=== PATIENT | female | born 1970 | race African-American/Black ===

== ENCOUNTER → 2019-03-27 06:09 | Outpatient (CLI) | payer BC ==
[~2019-03-27 06:09] MED LIST: CARAFATE1 G PO; OMEPRAZOLE40 MG PO; PRINIVIL10 MG PO; ZOFRAN ODT4 MG/UDTAB PO
== END | disposition home or self-care (01) ==
LOC: D.US 06:09
PROVIDERS: ATTEND Emergency Medicine
DX: R10.9 Unspecified abdominal pain (principal)

== ENCOUNTER 2019-04-03 19:09 | Emergency (ER) | payer BC ==
[~2019-04-03] VITALS: Ht 162.6 cm; Wt 81.8 kg
[2019-04-03 19:27] VITALS: Ht 162.6 cm; Wt 81.8 kg
[2019-04-03] MEDS ORDERED: PRINIVIL10 MG PO (19:33)
[2019-04-03] MEDS ORDERED: ZOFRAN ODT4 MG/UDTAB PO (19:33)
[2019-04-03 19:54] LABS: HEMATOCRIT 38.6 % (36.0-48.0); HEMOGLOBIN 13.3 g/dL (12-16); MCHC 34.5 g/dL (31.0-37.0); MEAN PLATELET VOLUME 11.3 fL (7.4-10.4); PLATELET COUNT 177 10x3/uL (130-400); RBC 4.29 10x6/uL (4.00-5.40); RDW 14.4 % (11.5-14.5); WBC 7.1 10x3/uL (4.8-10.8)
[2019-04-03 20:12] LABS: ALBUMIN 3.2 g/dL (3.4-5.0); ALKALINE PHOSPHATASE 57 U/L (46-116); ALT (SGPT) 10 U/L (10-68); BILIRUBIN - TOTAL 0.28 mg/dL (0.2-1.3); CALCIUM 8.3 mg/dL (8.5-10.1); CARBON DIOXIDE 27.5 mmol/L (21.0-32.0); CHLORIDE - SERUM 103 mmol/L (98-107); CREATININE - SERUM 0.9 mg/dL (0.6-1.3); POTASSIUM - SERUM 3.5 mmol/L (3.5-5.1); PROTEIN - SERUM 7.3 g/dL (6.4-8.2); SODIUM 139 mmol/L (136-145); UREA NITROGEN 6 mg/dL (7-18); eGFR NON AFRICAN AMERICAN 71 mL/min (90-120)
[2019-04-03 20:15] LABS: AMYLASE - SERUM 108 U/L (25-115); LIPASE 132 U/L (73-393)
[2019-04-03 20:18] LABS: CALC OSMOLALITY 273 mosm/kg (275-300); GLUCOSE 69 mg/dL (74-106); TROPONIN-I < 0.017 ng/mL (0.000-0.060)
[2019-04-03 21:05] LABS: APPEARANCE CLEAR (CLEAR); BILIRUBIN NEGATIVE (NEGATIVE); COLOR YELLOW (YELLOW); GLUCOSE NEGATIVE (NEGATIVE); KETONE NEGATIVE (NEGATIVE); NITRITE NEGATIVE (NEGATIVE); PROTEIN NEGATIVE (NEGATIVE); UROBILINOGEN NORMAL (NORMAL)
[2019-04-03 21:10] LABS: RED CELLS - URINE 0-5 /hpf (0-5); WHITE CELLS - URINE OCC /hpf (0-5)
[2019-04-03 21:12] LABS: BACTERIA FEW /hpf (NONE SEEN)
[2019-04-03 21:27] LABS: EOSINOPHILS 5 % (0-7); LYMPHOCYTES 53 % (15-50); MONOCYTES 2 % (2-11); NEUTROPHILS 39 % (40-80)
[2019-04-03 21:28] LABS: PLATELET ESTIMATE NORMAL
[2019-04-03] MEDS ORDERED: CARAFATE1 G PO (23:16)
[2019-04-03] MEDS ORDERED: OMEPRAZOLE40 MG PO (23:16)
[2019-04-03 23:57] VITALS: BP 169/100
== END 2019-04-03 23:57 | disposition home or self-care (01) ==
LOC: D.ER 19:09
PROVIDERS: Family Medicine
DX: K29.70 Gastritis, unspecified, without bleeding (principal); R10.9 Unspecified abdominal pain; R11.0 Nausea

== ENCOUNTER 2019-04-09 16:21 | Emergency (ER) | payer BC ==
[~2019-04-09] VITALS: Ht 162.6 cm; Wt 84.5 kg
[2019-04-09 17:45] VITALS: Ht 162.6 cm; Wt 84.5 kg
[2019-04-09 18:33] LABS: HEMATOCRIT 42.8 % (36.0-48.0); HEMOGLOBIN 14.6 g/dL (12-16); MCH 30.7 pg (26.0-34.0); MCHC 34.1 g/dL (31.0-37.0); MCV 90.1 fL (80.0-100.0); MEAN PLATELET VOLUME 11.5 fL (7.4-10.4); PLATELET COUNT 174 10x3/uL (130-400); RBC 4.75 10x6/uL (4.00-5.40); RDW 14.5 % (11.5-14.5); WBC 6.1 10x3/uL (4.8-10.8)
[2019-04-09 18:53] LABS: ALBUMIN 3.4 g/dL (3.4-5.0); ANION GAP 10.8 mmol/L (8-16); BILIRUBIN - TOTAL 0.31 mg/dL (0.2-1.3); CALCIUM 9.1 mg/dL (8.5-10.1); CARBON DIOXIDE 27.5 mmol/L (21.0-32.0); CREATININE - SERUM 1.2 mg/dL (0.6-1.3); POTASSIUM - SERUM 3.3 mmol/L (3.5-5.1); PROTEIN - SERUM 7.9 g/dL (6.4-8.2)
[2019-04-09 19:08] LABS: EOSINOPHILS 3 % (0-7); LYMPHOCYTES 53 % (15-50); NEUTROPHILS 44 % (40-80); PLATELET ESTIMATE NORMAL
[2019-04-09 19:27] LABS: APPEARANCE CLEAR (CLEAR); BILIRUBIN NEGATIVE (NEGATIVE); COLOR YELLOW (YELLOW); GLUCOSE NEGATIVE (NEGATIVE); KETONE NEGATIVE (NEGATIVE); NITRITE NEGATIVE (NEGATIVE); PROTEIN NEGATIVE (NEGATIVE); SPECIFIC GRAVITY 1.025 (1.005-1.020); UROBILINOGEN NORMAL (NORMAL)
[2019-04-09] MEDS ORDERED: ZOFRAN8 MG PO (19:52)
[2019-04-09] MEDS ORDERED: TORADOL10 MG PO (19:52)
[2019-04-09 20:13] VITALS: BP 157/93
== END 2019-04-09 20:14 | disposition home or self-care (01) ==
LOC: D.ER 16:21
PROVIDERS: Family Medicine
DX: R10.11 Right upper quadrant pain (principal); R50.9 Fever, unspecified; I10 Essential (primary) hypertension

== ENCOUNTER 2019-04-27 05:00 | Day surgery (SDC) | payer BC ==
[2019-04-26 09:42] LABS: ANION GAP 8.4 mmol/L (8-16); CALCIUM 8.9 mg/dL (8.5-10.1); CARBON DIOXIDE 31.1 mmol/L (21.0-32.0); CREATININE - SERUM 0.9 mg/dL (0.6-1.3); POTASSIUM - SERUM 3.5 mmol/L (3.5-5.1)
[2019-04-26 10:07] LABS: BASOPHILS 0.3 % (0-2); EOSINOPHILS 5.1 % (0-7); HEMATOCRIT 40.1 % (36.0-48.0); HEMOGLOBIN 13.7 g/dL (12-16); IMMATURE GRANULOCYTES 0.1 % (0-5); LYMPHOCYTES 47.3 % (15-50); MCH 30.6 pg (26.0-34.0); MCHC 34.2 g/dL (31.0-37.0); MCV 89.5 fL (80.0-100.0); MEAN PLATELET VOLUME 12.2 fL (7.4-10.4); MONOCYTES 6.5 % (2-11); NEUTROPHILS 40.7 % (40-80); PLATELET COUNT 203 10x3/uL (130-400); RBC 4.48 10x6/uL (4.00-5.40); RDW 14.2 % (11.5-14.5)
[~2019-04-27] VITALS: Ht 162.6 cm; Wt 85.3 kg
[~2019-04-27 05:00] MED LIST changes: +TORADOL10 MG PO; +ZOFRAN8 MG PO
[2019-04-27 05:32] VITALS: BP 143/91; Ht 162.6 cm; Wt 85.3 kg
[2019-04-27] MEDS ORDERED: HYDROCODON-ACE1 EA10 PO (08:18)
--- NOTE | 2019-04-27 09:39 | NUR ---
0915 PT OXYGEN SATURATION 100% ON 4LMIN BNC. TURNED BNC TO 2L/MIN. HOLDING O2 SAT AT 99-100%
--- NOTE | 2019-04-27 13:26 | NUR ---
1022 PT C/O ABDOMINAL PAIN. VSS. NORCO GIVEN FOR PAIN
--- NOTE | 2019-04-27 13:28 | NUR ---
1100 PT UP TO BR WITH ASSISTANCE. PAIN LEVEL HAS DECREASED SLIGHTLY. STATES PAIN IS A 7 OUT OF 10. PREVIOUS ASSESSMENT WAS 10 OUT OF 10. PT ABLE TO VOID WITHOUT DIFFICULTY.
--- NOTE | 2019-04-27 13:30 | NUR ---
1108 IV DC'D. CATHETER TIP INTACT. NO BLEEDING AT SITE. BANDAID APPLIED.
--- NOTE | 2019-05-15 10:07 | OP ---
PATIENT NAME: ELIS CROWLEY MEDICAL RECORD: [id number] :74 LOCATION:D.FORMERLY [facility] ADMISSION DATE: SURGEON: JEOVANY JENNINGS MD DATE OF OPERATION: 04/27/2019 PREOPERATIVE DIAGNOSES: 1. Gallbladder polyp. 2. Gastritis. 3. Hypertension. 4. Tobacco dependence syndrome. POSTOPERATIVE DIAGNOSES: 1. Gallbladder polyp. 2. Gastritis. 3. Hypertension. 4. Tobacco dependence syndrome. PROCEDURE: 1. Laparoscopic cholecystectomy. 2. EGD with biopsy. SURGEON: Jeovany Jennings MD GOLD CHARMER: Darshan Arboleda REPORT OF PROCEDURE: The patient's abdomen was prepped and draped in sterile fashion. A cutdown was made on the superior aspect of the umbilicus, 0 Vicryls were placed in the fascia bilaterally and the fascia was incised with 15-blade. I then bluntly entered the peritoneal cavity and placed a 12-mm Barb port. Under direct visualization, a 5 mm trocar was placed in the epigastrium and 2 more 5-mm trocars were placed in the right subcostal region. The gallbladder was grasped and elevated. The cystic artery and cystic duct were dissected free and these were clipped proximally and distally and ligated in standard fashion. The gallbladder was then taken off the liver bed using electrocautery and placed in the right upper quadrant. 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 These adhesions were all taken down using electrocautery. At this point, we irrigated out the right upper quadrant and assured there was no sign of any bleeding. The ports and insufflation were then removed and the gallbladder was taken out through the umbilicus. The umbilical fascia was closed with interrupted 0 Vicryls times 3 and the wounds were closed with running subcutaneous 5-0 Monocryl. A 10 mL of 0.25% Marcaine with epinephrine were infused into the surrounding tissues. The wounds were dressed appropriately. We then performed our EGD. An Olympus endoscope was advanced through the patient's mouth and esophagus. The scope easily passed through the pylorus into the second portion of the duodenum. There was no sign of any masses, lesions, ulcerations or inflammatory changes. As we pulled back, we could see the pylorus and there was some old food content present within the distal aspect of the stomach. There were no ulcerations, lesions or stenoses noted. A biopsy was taken of the antrum of the stomach and sent off for permanent specimen. As we did a retroflex view we did not see any evidence or any other masses, lesions or ulcerations throughout the stomach and there was no sign of a hiatal hernia. The GE junction appeared normal and rested at 38 cm from the teeth. A biopsy was taken on the distal third of the esophagus near the GE junction. There was no sign of any inflammatory changes or ulcerations present on the distal third OPERATIVE REPORT [id number] ELIS CROWLEY of the esophagus. The endoscope was pulled back slowly and we did not see any masses, lesions or strictures of the esophagus. At this point, the insufflation and the scope were removed. COMPLICATIONS: None. CONDITION: Stable. ANESTHESIA: General endotracheal and local. BLOOD LOSS: Minimal. TRANSINT:[id number] Voice Confirmation ID: [id number] DOCUMENT ID: [id number] cc: tone Lopez CHRISTIAN MD at 1007 CC: [id number] DICTATION DATE: 04/27/19824 SET UP MECHANIC COATING MACHINES: 04/27/19 0842 [facility] 04/27/19 [facility] [address] [place] [address]
== END 2019-04-27 11:35 | disposition home or self-care (01) ==
LOC: D.OPS 05:00 → D.PAN 07:15 → D.OPS 11:35
PROVIDERS: ATTEND Surgery
DX: K82.4 Cholesterolosis of gallbladder (principal); K29.70 Gastritis, unspecified, without bleeding; I10 Essential (primary) hypertension; F17.200 Nicotine dependence, unspecified, uncomplicated

== ENCOUNTER 2019-04-27 20:57 | Emergency (ER) | payer BC ==
[~2019-04-27] VITALS: Ht 162.6 cm; Wt 84.5 kg
[~2019-04-27 20:57] MED LIST changes: +HYDROCODON-ACE1 EA10 PO
[2019-04-27 21:06] VITALS: Ht 162.6 cm; Wt 84.5 kg
[2019-04-27 21:26] LABS: BASOPHILS 0.2 % (0-2); HEMATOCRIT 40.9 % (36.0-48.0); HEMOGLOBIN 13.8 g/dL (12-16); LYMPHOCYTES 40.8 % (15-50); MCH 30.5 pg (26.0-34.0); MCHC 33.7 g/dL (31.0-37.0); MCV 90.5 fL (80.0-100.0); MEAN PLATELET VOLUME 11.4 fL (7.4-10.4); MONOCYTES 5.7 % (2-11); NEUTROPHILS 51.3 % (40-80); PLATELET COUNT 195 10x3/uL (130-400); RBC 4.52 10x6/uL (4.00-5.40); RDW 14.4 % (11.5-14.5); WBC 6.4 10x3/uL (4.8-10.8)
[2019-04-27 21:48] LABS: ALBUMIN 3.5 g/dL (3.4-5.0); ALKALINE PHOSPHATASE 58 U/L (46-116); ALT (SGPT) 31 U/L (10-68); BILIRUBIN - TOTAL 0.47 mg/dL (0.2-1.3); CALC OSMOLALITY 276 mosm/kg (275-300); CALCIUM 8.9 mg/dL (8.5-10.1); CARBON DIOXIDE 27.5 mmol/L (21.0-32.0); CHLORIDE - SERUM 104 mmol/L (98-107); GLUCOSE 104 mg/dL (74-106); POTASSIUM - SERUM 3.8 mmol/L (3.5-5.1); PROTEIN - SERUM 7.5 g/dL (6.4-8.2); SODIUM 140 mmol/L (136-145); UREA NITROGEN 7 mg/dL (7-18); eGFR NON AFRICAN AMERICAN 63 mL/min (90-120)
[2019-04-27 21:52] LABS: AMYLASE - SERUM 77 U/L (25-115); LIPASE 75 U/L (73-393); TROPONIN-I < 0.017 ng/mL (0.000-0.060)
[2019-04-27 23:48] LABS: APPEARANCE CLEAR (CLEAR); BILIRUBIN NEGATIVE (NEGATIVE); COLOR YELLOW (YELLOW); GLUCOSE NEGATIVE (NEGATIVE); KETONE NEGATIVE (NEGATIVE); NITRITE NEGATIVE (NEGATIVE); PROTEIN NEGATIVE (NEGATIVE); RED CELLS - URINE 0-5 /hpf (0-5); UROBILINOGEN NORMAL (NORMAL); WHITE CELLS - URINE 0-5 /hpf (0-5)
[2019-04-28 02:00] VITALS: BP 141/83
== END 2019-04-28 01:57 | disposition home or self-care (01) ==
LOC: D.ER 20:57
PROVIDERS: Family Medicine
DX: Z90.49 Acquired absence of other specified parts of digestive tract (principal); R11.2 Nausea with vomiting, unspecified

== ENCOUNTER 2019-05-23 17:14 | Observation (INO) | payer BC ==
[~2019-05-23] VITALS: Ht 162.6 cm; Wt 83.5 kg
--- NOTE | ~2019-05-23 | HEMODYNAMI ---
PATIENT:ELIS CROWLEY MEDICAL RECORD: [id number] : 74 LOCATION:[facility] [address] [place] [facility] [id number] ADMISSION DATE: 05/23/19 Generatedon:05/24/201915:24 Patient name: ELIS CROWLEY Patient #: [id number] SSN: [id number] : 1970 Date of study: 05/24/2019 Page: Of Hemodynamic Procedure Report Patient Data Patient Demographics Procedure consent was obtained First Name: ELIS Gender: Female Last Name: KEO : 1970 Middle Initial: MALACHI Age: 48 year(s) Patient #: [id number] Race: Black SSN: [id number] Additional ID: [id number] Contact details [address]: [address] [place] [address] [place] State: [place] City: [place] Zip code: [address] Past Medical History Allergies: No known allergies Admission Admission Data Admission Date: 05/23/2019 Admission Time: 21:27 Admit Source: Other Room #: D.2112 Height (in.): 64 BSA: 1.89 (m2) Height (cm.): 162.56 BMI: 31.79 (kg/m2) Weight (lbs.): 185.19 Weight (kg.): 84 Lab Results Lab Result Date: 05/24/2019 Lab Result Time: 0:00 Biochemistry Name Units Result Min Max BUN mg/dl 9 --(*---)-- 7 18 Creatinine mg/dl 0.9 --(-*--)-- 0.6 1.3 eGFR ml/min 85.57937 -*(----)-- 90 120 AM CBC Name Units Result Min Max Hematocrit % 37.4 *-(----)-- 42 54 Hemoglobin g/dl 12.4 *-(----)-- 13.5 17.5 Procedure Procedure Types Cath Procedure Diagnostic Procedure LHC LHC w/Coronaries Sedation Charges Moderate Sedation up to 15 minutes Procedure Description Procedure Date Procedure Date: 05/24/2019 Procedure Start Time: 15:09 Procedure End Time: 15:21 Procedure Staff Name Function Amparo Perez RT Monitor Stacy Branham RN Nurse Levi Blanchard MD Performing Physician Abdoul Hazel RN Nurse Christel Ortiz RT Scrub Procedure Data Cath Procedure Fluoroscopy Diagnostic fluoroscopy Total fluoroscopy Time: 1.4 time: 1.4 min min Diagnostic fluoroscopy Total fluoroscopy dose: 293 dose: 293 mGy mGy Contrast Material Contrast Material Type Amount (ml) Isovue 300 51 Entry Location Entry Primary Successful Side Size Upsize Upsize Entry Closure Greer ccessful Closure Location (Fr) 1 (Fr) 2 (Fr) Remarks Device Remarks Radial Right 6 Fr Mechanical artery Short Compression Estimated blood loss: 5 ml Diagnostic catheters Device Type Used For End Catheter Placement DIAGNOSTIC Gouverneur 110cm 5 Multi-vessel Fr catheter ([id number]) Angiography Procedure Complications No complications Procedure Medications Medication Administration Route Dosage 0.9% NaCl I.V. 100 ml/hr Oxygen etCO2 Nasal cannula 2 l/min Heparin Flush Bag added to field 2 bags (1000units/500ml NS) Lidocaine 2% added to field 20 Radial Cocktail added to field 1 syringe (Verapamil 2mg/Nitro 400mcg/Heparin 1500units) Benadryl I.V. 50 mg Versed I.V. 1 mg Fentanyl I.V. 50 mcg Versed I.V. 1 mg Radial Cocktail I.A. 1 syringe (Verapamil 2mg/Nitro 400mcg/Heparin 1500units) Hemodynamics Rest HGB: 12.4 (g/dl) O2 Consumption: Estimated: 174.39 (ml/min) O2 Consumption index ed: Estimated:92.27 (ml/min/m) Heart Rate: 51 (bpm) Pressure Samples Time Site Value (mmHg) Purpose Heart Use Rate(bpm) 15:12 LV 115/6,9 Snapshot 71 Gradients Valve Time Site Site Mean SEP/DFP Peak To Heart Use 1 2 (mmHg) (sec/min) Peak Rate (mmHg) (bpm) Aortic 15:12 LV AO 72 Snapshots Pre Cath Intra NCS Post Cath Vital Signs Time Heart Resp SPO2 etCO2 NIBP (mmHg) Rhythm Pain Sedation Rate (ipm) (%) (mmHg) Status Level (bpm) 15:03:29 54 16 100 37.3 184/83(154) NSR 0 (11) 10(A) , No pain 15:08:00 51 15 99 39.5 167/85(130) NSR 0 (11) 10(A) , No pain 15:12:14 71 18 100 37.3 127/78(96) NSR 0 (11) 9(A) , No pain 15:17:13 58 17 95 38.8 Measuring NSR 0 (11) 9(A) , No pain 15:17:17 57 16 95 38.8 143/86(103) NSR 0 (11) 9(A) , No pain Medications Time Medication Route Dose Verified Delivered Reason Notes Effectiveness by by 15:05:55 0.9% NaCl I.V. 100 Abdoul Abdoul Per ml/hr Yasemin Hazel physician RN RN 15:06:05 Oxygen etCO2 2 l/min Abdoul Abdoul for low 02 Nasal Lorigan Lorigan sats cannula RN RN 15:06:18 Heparin Flush added 2 bags Abdoul Abdoul used for Bag to Lorbernard Hazel procedure (1000units/500ml RN RN NS) 15:06:30 Lidocaine 2% added 20ml Abdoul Abdoul for local to vial Lorigan Lorigan anesthetic field RN RN 15:06:44 Radial Cocktail added 1 Abdoul Abdoul used for (Verapamil to syringe Lorigan Lorigan procedure 2mg/Nitro field NORMAN RN 400mcg/Hepari 15:06:55 Benadryl I.V. 50 mg Abdoul Abdoul Per Yasemin Hazel physician RN RN 15:07:22 Versed I.V. 1 mg Abdoul Abdoul for sedation Yasemin Hazel RN RN 15:07:30 Fentanyl I.V. 50 mcg Abdoul Abdoul for sedation Yasemin Hazel RN RN 15:09:58 Versed I.V. 1 mg Abdoul Abdoul for sedation Yasemin Hazel RN RN 15:10:45 Radial Cocktail I.A. 1 Abdoul Levi for (Verapamil syringe Lorigan Kerkhoven vasodilation 2mg/Nitro EMERSON ESTRADA 400mcg/Hepari Procedure Log Time Note 14:07:34 Informed consent obtained and on chart 14:08:13 Procedure Status Urgent Heart Cath (IP). 14:08:14 Time tracking: Regular hours (M-F 7:00 - 5:00) 14:08:18 Plan of Care:Hemodynamics will remain stable., Cardiac rhythm will remain stable., Comfort level will be maintained., Respiratory function will remain adequate., Patient/ family verbilizes understanding of procedure., Procedure tolerated without complication., Recovers from procedure without complications.. 14:08:29 Patient Weight : 185.19 lbs 14:08:32 Patient Height : 64 inches 14:08:38 Admit Source: Other 14:08:51 Patient allergic to No known allergies 14::15 Lab Result : Hemoglobin 12.4 g/dl 14:: Lab Result : Hematocrit 37.4 % 14::15 Lab Result : eGFR AM 85.09772 ml/min 14::15 Lab Result : BUN 9 mg/dl 14::15 Lab Result : Creatinine 0.9 mg/dl 14:32:04 Stacy Branham RN sent for patient. Start room use. 14:51:48 Patient received from Med II to CCL 1 Alert and oriented. Tansferred to table in Supine position. 14:51:49 ECG and BP/O2 sat monitors applied to patient. 14:51:49 Correct patient and procedure confirmed by team. 14:51:49 Warm blankets applied, and jeffrey hugger turned on for patient comfort. 15:01:18 Vital chart was started 15:01:20 Baseline sample Acquired. 15:01:22 Rhythm: sinus bradycardia 15:01:23 Full Disclosure recording started 15:01:24 Pre-op teaching completed and patient verbalized understanding. 15:01:24 Pre-procedure instructions explained to patient. 15:01:27 Family in patients room. 15:01:29 Patient NPO since Midnight. 15:01:41 PATIENT PRELOADED ON PLAVIX 15:01:47 Patient diabetic? No. 15:01:48 Patient not . Patient has had tubal. 15:01:51 Previous problem with sedation/anesthesia? No ? 15:01:53 Snore? Yes 15:01:55 Sleep apnea? No 15:01:56 Deviated septum? No 15:01:57 Opens mouth fully? Yes 15:02:03 Sticks out tongue? Yes 15:02:06 Dentures? No ? 15:02:07 Airway obstruction? No ? 15:02:10 Modified Brian's test Ulnar < 7 seconds 15:02:13 Pre procedure: right dorsailis pedis pulse 1+ Palpable, but thready & weak; easily obliterated 15:02:19 Patient pain scale 2/10 ?. 15:02:25 IV patent on arrival in left forearm with 0.9% NaCl at [facility]. 15:02:30 Lab results completed and on chart. 15:02:33 Right Radial & Right Groin area was prepped with chlora-prep and draped in sterile fashion 15:02:34 Alarms reviewed by R. N. 15:02:35 Sharps counted by scrub and verified by R.N. 15:02:42 Use device set Radial Dx or PCI 15:02:49 ACIST Syringe (45981) opened to sterile field. 15:02:51 ACIST Hand Control (25125) opened to sterile field. 15:02:52 Bag Decanter (2002S) opened to sterile field. 15:02:53 ACIST Manifold (44329) opened to sterile field. 15:02:54 Tegaderm 4 x 4 (1626W) opened to sterile field. 15:02:57 MBrace Wrist Support ([id number]) opened to sterile field. 15:02:57 Medline Cath Pack ([id number]) opened to sterile field. 15:03:00 EMERALD Guide Wire (924-548) opened to sterile field. 15:03:01 SHEATH 6FR RAIN (1650638) opened to sterile field. 15:05:55 0.9% NaCl 100 ml/hr I.V. was administered by Abdoul Hazel RN; Per physician; Verbal order read back and verified. 15:06:05 Oxygen 2 l/min etCO2 Nasal cannula was administered by Abdoul Hazel RN; for low 02 sats; Verbal order read back and verified. 15:06:18 Heparin Flush Bag (1000units/500ml NS) 2 bags added to field was administered by Abdoul Hazel RN; used for procedure; Verbal order read back and verified. 15:06:25 ZEPHYR REGULAR TR BAND (522643) opened to sterile field. 15:06:30 Lidocaine 2% 20ml vial added to field was administered by Abdoul Hazel RN; for local anesthetic; Verbal order read back and verified. 15:06:44 Radial Cocktail (Verapamil 2mg/Nitro 400mcg/Heparin 1500units) 1 syringe added to field was administered by Abdoul Hazel RN; used for procedure; Verbal order read back and verified. 15:06:55 Benadryl 50 mg I.V. was administered by Abdoul Hazel RN; Per physician; Verbal order read back and verified. 15::58 --------ALL STOP TIME OUT------ 15::58 Physician arrived 15:06:59 Final Timeout: patient, procedure, and site verified with staff and physician. All members of the team are in agreement. 15:07:03 Right Radial & Right Groin site verified by team. 15:07:06 Fire Safety Assessment: A--An alcohol-based skin anteseptic being used preoperatively., C--Open oxygen or nitrous oxide is being used., D--An ESU, laser, or fiber-optic light is being used. 15:07:11 Physical assessment completed. ASA score P 2 - A patient with mild systemic disease as per Levi Blanchard MD. 15:07:22 Versed 1 mg I.V. was administered by Abdoul Hazel RN; for sedation; Verbal order read back and verified. 15:07:28 2) 60-89 Mildly reduced kidney function, and other findings (as for stage 1) point to kidney disease. 15:07:30 Fentanyl 50 mcg I.V. was administered by Abdoul Hazel RN; for sedation; Verbal order read back and verified. 15:09:32 Maximum allowable contrast dose (3.7 X eGFR X 0.75)197 ml. 15:09:36 Sedation plan: IV Moderate Sedation Medication:Versed, Fentanyl 15:09:43 Procedure started. 15:09:48 Local anesthetic to right radial artery with Lidocaine 2% by Levi Blanchard MD.INITIAL ACCESS ONLY 15:09:57 A 6 Fr Short sheath was inserted into the Right Radial artery 15::58 Versed 1 mg I.V. was administered by Abdoul Hazel RN; for sedation; Verbal order read back and verified. 15:10:45 Radial Cocktail (Verapamil 2mg/Nitro 400mcg/Heparin 1500units) 1 syringe I.A. was administered by Levi Blanchard MD; for vasodilation; Verbal order read back and verified. 15:11:02 A DIAGNOSTIC [place]neur 110cm 5 Fr catheter ([id number]) was advanced over the wire and used for Multi-vessel Angiography. 15:12:24 EF : 55 % 15:12:57 LCA angiography performed. 15:13:00 Injector settings: Ml/sec: 3, Volume: 6, 15:14:44 RCA angiography performed. 15:14:47 Injector settings: Ml/sec: 3, Volume: 6, 15:14:48 ACCDominant side:Right 15:14:55 Catheter removed. 15:18:18 Sheath removed intact; hemostasis achieved with Mechanical Compression to the Right Radial artery. 15:18:20 Procedure ended.(Physican Out) 15:19:35 Fluoroscopy time 01.40 minutes. 15:19:39 Fluoroscopy dose: 293 mGy 15:19:39 Flurop Dose total: 293 15:19:47 Dose Area Product 99025 mGy/cm. 15:20:04 Contrast amount:Isovue 300 51ml. 15:20:06 Sharps counted by scrub and verified by R.N. 15:20:33 Weatherby band inflated with 10cc of air. 15:20:35 Insertion/operative site no bleeding no hematoma. 15:20:42 Post right radial artery:stable 15:20:44 Post Procedure Pulses reassessed and unchanged 15:20:46 Post procedure rhythm: unchanged. 15:20:49 Estimated blood loss: 5 ml 15:20:51 Patient needs reinforcement of post procedure teaching. 15:20:51 Post procedure instruction explained to patient.Patient verbalizes understanding. 15:20:56 Procedure type changed to Cath procedure, Diagnostic procedure, LHC, LHC w/Coronaries, Sedation Charges, Moderate Sedation up to 15 minutes 15:20:57 Procedure and supply charges have been captured, reviewed, submitted and are correct. 15:21:01 Procedure Complication : No complications 15:21:04 See physician's report for complete and final results. 15:21:04 Vital chart was stopped 15:21:08 Report given to Med II. 15:21:20 Patient transfered to Med II with Stretcher. 15:21:22 Full Disclosure recording stopped 15:21:22 Procedure ended. 15:21:25 End room use (Document Last) Device Usage Item Name Manufacture Quantity Catalog Hospital Part Current Minima l Lot# / Number Charge Number Stock Stock Serial# Code ACIST Acist 1 32199 [id number] [id number] 20 MyVerse (97523) AwesomeTouch ACIST Hand Acist 1 39662 212118 533855 856590 5 Control Medical (01317) Systems Inc Bag Microtek 1 2001S 168728 26890 071281 5 Decanter Medical Inc. (2001S) ACIST Acist 1 35225 588910 846262 919538 5 Manifold Medical (09124) Systems Inc Tegaderm 4 3M 1 1626W 445382 879407 807068 5 x 4 (1626W) Medline Medline 1 [id number] 683961 66362 885344 5 Cath Pack ([id number]) MBrace Advanced 1 140-0250-00 328430 56851 705793 5 Wrist Vascular Support Dynamics ([id number]) EMERALD Cardinal 1 502-455 592012 651696 457250 5 Guide Wire Health (502455) SHEATH 6FR Cardinal 1 3024956 385970 9372724 689740 5 RAIN Health (2789872) ZEPHYR Cardinal 1 521510 399258 1596547 535446 5 REGULAR TR Health BAND (872579) DIAGNOSTIC Terumo 1 70-0803 973944 146444 932327 5 Gouverneur 110cm 5 Fr catheter (893183) Signature Audit Keenes Stage Time Signature Unsigned Intra-Procedure 05/24/2019 Amparo Perez 3:21:55 PM RT(R); Levi Blanchard MD; Abdoul Hazel RN [address] [place] [address]
[2019-05-23 18:08] LABS: HEMOGLOBIN 12.8 g/dL (12-16); MCHC 33.7 g/dL (31.0-37.0); MCV 89.2 fL (80.0-100.0); MEAN PLATELET VOLUME 12.1 fL (7.4-10.4); PLATELET COUNT 182 10x3/uL (130-400); RBC 4.26 10x6/uL (4.00-5.40); WBC 7.2 10x3/uL (4.8-10.8)
[2019-05-23 18:20] LABS: APTT 26.4 SECONDS (22.8-39.4); INR 1.06 (0.85-1.17); PROTIME 13.3 SECONDS (11.6-15.0)
[2019-05-23 18:26] VITALS: BP 155/97
[2019-05-23 18:29] LABS: ALBUMIN 3.2 g/dL (3.4-5.0); ALKALINE PHOSPHATASE 63 U/L (46-116); ALT (SGPT) 13 U/L (10-68); BILIRUBIN - TOTAL 0.27 mg/dL (0.2-1.3); CALC OSMOLALITY 284 mosm/kg (275-300); CARBON DIOXIDE 29.4 mmol/L (21.0-32.0); CHLORIDE - SERUM 106 mmol/L (98-107); CREATININE - SERUM 0.9 mg/dL (0.6-1.3); GLUCOSE 83 mg/dL (74-106); POTASSIUM - SERUM 3.8 mmol/L (3.5-5.1); PROTEIN - SERUM 7.4 g/dL (6.4-8.2); SODIUM 144 mmol/L (136-145); UREA NITROGEN 9 mg/dL (7-18); eGFR NON AFRICAN AMERICAN 71 mL/min (90-120)
[2019-05-23 18:38] LABS: EOSINOPHILS 3 % (0-7); LYMPHOCYTES 69 % (15-50); MONOCYTES 1 % (2-11); NEUTROPHILS 27 % (40-80); PLATELET ESTIMATE NORMAL
[2019-05-23 18:42] LABS: CKMB 0.4 U/L (0.0-3.6); CREATINE KINASE 115 UL (21-215); MAGNESIUM - SERUM 1.9 mg/dL (1.8-2.4); TROPONIN-I < 0.017 ng/mL (0.000-0.060)
--- NOTE | 2019-05-23 19:07 | NUR ---
HAND OFF REPORT GIVEN TO EMERSON MARTINEZ
--- NOTE | 2019-05-23 19:07 | NUR ---
pt states chest discomfort 8/10 prior to first sl nitro.
[2019-05-23 19:18] VITALS: BP 146/90
--- NOTE | 2019-05-23 19:29 | NUR ---
PT AMBULATED TO RESTROOM INDEPENDENTLY.
--- NOTE | 2019-05-23 19:45 | NUR ---
EVENING ROUNDS COMPLETED. VSS, AAOX4, NO S/S OF DISTRESS. PT DENIES ANY CHEST PAIN AT THIS TIME. PIV RFA, NS INFUSING @125, SINUS DEEDEE ON MONITOR. PT DENIES ANY FURTHER NEEDS AT THIS TIME. WILL CPOC. CL WITHIN REACH.
--- NOTE | 2019-05-23 20:10 | NUR ---
PT TO RADIOLOGY
--- NOTE | 2019-05-23 20:32 | NUR ---
PT RETURNED FROM RADIOLOGY.
--- NOTE | 2019-05-23 21:04 | NUR ---
PT GIVEN BLANKETS, DENIES ANY FURTHER NEEDS AT THIS TIME. CALL LIGHT WITHIN REACH.
[2019-05-23] MEDS ORDERED: AMOXICILLIN500 M1 PO (22:43)
[2019-05-23 22:44] VITALS: BP 135/88; BMI 31.6
--- NOTE | 2019-05-23 22:45 | NUR ---
RECIEVED REPORT FROM THIERNO MARTINEZ. PT ARRIVED ON WHEELCHAIR, INITIAL ASSESSMENT COMPLETED. VSS, AAOX4, NO S/S OF DITRESS OR CHEST PAIN. PT SINUS ON TELEMETRY. PT IS A GOOD HX, DENIES ANY FURTHER NEEDS AT THIS TIME. WILL CPOC. CL WITHIN REACH, BED IN LOW, SR UP X2.
[2019-05-24 04:00] VITALS: BP 136/77
[2019-05-24 07:00] LABS: BASOPHILS 0.4 % (0-2); EOSINOPHILS 9.9 % (0-7); HEMATOCRIT 37.4 % (36.0-48.0); HEMOGLOBIN 12.4 g/dL (12-16); IMMATURE GRANULOCYTES 0.2 % (0-5); LYMPHOCYTES 42.6 % (15-50); MCH 29.6 pg (26.0-34.0); MCHC 33.2 g/dL (31.0-37.0); MCV 89.3 fL (80.0-100.0); MEAN PLATELET VOLUME 11.8 fL (7.4-10.4); MONOCYTES 4.1 % (2-11); NEUTROPHILS 42.8 % (40-80); PLATELET COUNT 146 10x3/uL (130-400); RBC 4.19 10x6/uL (4.00-5.40); RDW 14.1 % (11.5-14.5)
--- NOTE | 2019-05-24 07:10 | NUR ---
REPORT RECEIVED FROM BRICK MAKER AND PATIENT CARE ASSUMED. PATIENT LAYING IN BED ON RT SIDE WITH EYES CLOSED AND BREATHING EVENLY. WILL CONTINUE WITH PLAN OF CARE. SR UP X 2 BED IN LOW POSITION AND CALL LIGHT IN REACH.
[2019-05-24 07:29] LABS: WBC 4.9 10x3/uL (4.8-10.8)
[2019-05-24 07:36] LABS: CALC OSMOLALITY 284 mosm/kg (275-300); CALCIUM 8.4 mg/dL (8.5-10.1); CARBON DIOXIDE 29.7 mmol/L (21.0-32.0); CHLORIDE - SERUM 107 mmol/L (98-107); CKMB 0.3 U/L (0.0-3.6); CREATINE KINASE 89 UL (21-215); CREATININE - SERUM 0.9 mg/dL (0.6-1.3); GLUCOSE 80 mg/dL (74-106); MAGNESIUM - SERUM 1.9 mg/dL (1.8-2.4); PHOSPHOROUS 4.3 mg/dL (2.5-4.9); POTASSIUM - SERUM 3.6 mmol/L (3.5-5.1); SODIUM 144 mmol/L (136-145); TROPONIN-I < 0.017 ng/mL (0.000-0.060); UREA NITROGEN 9 mg/dL (7-18); eGFR NON AFRICAN AMERICAN 71 mL/min (90-120)
[2019-05-24 08:00] VITALS: BP 136/80
--- NOTE | 2019-05-24 10:40 | NUR ---
PATIENT IS STABLE AND VSS. PATIENT DENIES ANY NEEDS OR PAIN.PATIENT IS NPO AWAITING HEART CATH. WILL CONTINUE TO MONITOR. SR UP X 2 BED IN LOW POSITION AND CALL LIGHT IN REACH.
[2019-05-24 12:00] VITALS: BP 163/101
[2019-05-24 12:35] LABS: CKMB 0.3 U/L (0.0-3.6); CREATINE KINASE 97 UL (21-215); TROPONIN-I < 0.017 ng/mL (0.000-0.060)
--- NOTE | 2019-05-24 13:08 | CN ---
PATIENT NAME:ELIS CROWLEY MEDICAL RECORD: [id number] : 74 LOCATION:D. D.2112 ADMIT DATE: 05/23/19 ACCOUNT: [id number] CONSULTING PHYSICIAN: CARLOS CERDA MD REFERRING PHYSICIAN: CASTRO SAUNDERS MD DATE OF CONSULTATION: 05/24/2019 HISTORY OF PRESENT ILLNESS: A 48-year-old female with no known history of coronary artery disease, with multiple risk factors, including strongly family history of coronary artery disease, hypertension, hyperlipidemia. Admitted with chest tightness, pressure radiating to the jaw accompanied by nausea. She has been noticing decreased effort and tolerance, does try to walk on regular basis at lunchtime. Over the past 2-week period, progressing to a class IV symptomatology with rest symptoms. We are asked to see her concerning her cardiovascular status. PAST MEDICAL HISTORY: Includes: 1. History of hypertension. 2. Hyperlipidemia, currently on lifestyle changes, before pharmacological therapy. 3. Gastroesophageal reflux disease. MEDICATIONS: Include Carafate 1 g a.c. and q.h.s., omeprazole 40 mg p.o. daily, lisinopril 10 mg p.o. q.h.s. ALLERGIES: None known. SOCIAL HISTORY: Smokes about a pack a day, nondrinker. Does try to exercise on a regular basis. 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 REVIEW OF SYSTEMS: The patient reports easy bruising but reports no swollen glands. The patient reports no fever, no night sweats, no significant weight gain, no significant weight loss. No significant exercise tolerance. The patient reports no dry eyes, no irritation, no vision change. Patient reports no difficulty hearing and no ear pain. Patient reports no frequent nose bleeds or nose and sinus problems. Patient reports on arm pain on exertion. No shortness of breath while lying down. No history of heart murmur. Patient reports no cough, no wheezing or coughing up blood. Patient reports no abdominal pain, no vomiting. Normal appetite. No diarrhea and not vomiting blood. No nausea and no constipation. Patient reports no incontinence. No difficulty urinating. No hematuria. No increased frequency. Patient reports no muscle aches. No weakness, no arthralgias, no back pain. No swelling of the extremities. Patient reports no abnormal mole, no jaundice, no rashes. Reports no loss of consciousness. No weakness and no numbness. No seizures, dizziness, or headaches. The patient reports no depression, no sleep disturbance, feeling safe in a relationship and no alcohol abuse. Patient reports on fatigue. Reports no runny nose or sinus pressure. No itching, no hives, and no frequent sneezing. PHYSICAL EXAMINATION: GENERAL: Pleasant female in no acute distress, appears stated age. VITAL SIGNS: Blood pressure 136/77, pulse 60 and regular. HEENT: Normocephalic, atraumatic. NECK: No bruits are noted. HEART: Regular. Questionable S4 gallop. CONSULT REPORT [id number] ELIS CROWLEY LUNGS: Good air excursion. ABDOMEN: Soft, nontender. EXTREMITIES: Pulses 2+. No edema. DIAGNOSTIC DATA: EKG shows nonspecific ST-T changes inferolaterally. PLAN: We will plan for diagnostic angiography, intervention based on the above. TRANSINT:[id number] Voice Confirmation ID: [id number] DOCUMENT ID: [id number] CARLOS CERDA MD at 1308 CC: [id number] DICTATION DATE: 05/24/19827 OUT PATIENT THERAPIST: 05/24/[address] [facility] [address] [place] [address]
[2019-05-24 13:48] VITALS: BMI 31.6
[2019-05-24 15:02] LABS: UDS - AMPHET NEGATIVE QUAL (NEGATIVE); UDS - BARB NEGATIVE QUAL (NEGATIVE); UDS - BENZO NEGATIVE QUAL (NEGATIVE); UDS - COCAINE NEGATIVE QUAL (NEGATIVE); UDS - OPIATE POSITIVE QUAL (NEGATIVE); UDS - PCP NEGATIVE QUAL (NEGATIVE); UDS - THC NEGATIVE QUAL (NEGATIVE)
--- NOTE | 2019-05-24 15:30 | NUR ---
PATIENT IS STABLE AND VSS. PATIENT TO SURVEY DATA TECHNICIAN VIA HOSPITAL BED AND SURVEY DATA TECHNICIAN TEAM.
[2019-05-24 15:38] VITALS: Ht 162.6 cm; Wt 83.5 kg
[2019-05-24 16:00] VITALS: BP 141/84
--- NOTE | 2019-05-24 16:15 | NUR ---
PATIENT BACK TO ROOM VIA HOSPITAL BED AND PEER TUTOR TEAM. PATIENT IS SLEEPING BUT AROUSES EASILY TO VOICE. TR BAND TO RT WRIST. NO BLEEDING , BRUISING OR HEMATOMA NOTED. VSS. FREQUENT VITALS SET UP. WILL CONTINUE TO MONITOR. SR UP X 2 BED IN LOW POSITION AND CALL LIGHT IN REACH.
--- NOTE | 2019-05-24 18:02 | NUR ---
PATIENT SITTING UP IN BED EATING SUPPER. PATIENT IS STABLE AND VSS. REMOVED HALF OF AIR FROM RT RADIAL BAND. NO BLEEDING, BRUISING OR HEMATOMA NOTED. WILL CONTINUE TO MONITOR. SR UP X 2 BED IN LOW POSITION AND CALL LIGHT IN REACH.
--- NOTE | 2019-05-24 18:40 | NUR ---
PATIENT IS STABLE AND VSS. PATIENT DENIES ANY PAIN NEEDS. IV CATHETER REMOVED WITH ENTIRE CATHETER INTACT. ORDERS RECEIVED FOR MELISSA. KELLY NAGY VERBAL INSTRUCTIONS GIVEN. PATIENT VERBALIZED UNDERSTANDING AND SIGNED PAPERWORK.
--- NOTE | 2019-05-25 12:40 | OP ---
PATIENT NAME: ELIS CROWLEY MEDICAL RECORD: [id number] :74 LOCATION:D.M2 D.2112 ADMISSION DATE:05/23/19 SURGEON: CARLOS CERDA MD DATE OF OPERATION: 05/25/2019 PROCEDURE: Left heart catheterization, selective coronary angiography, right radial approach. CATHETERS: Radial sheath, Vernon catheter. The procedure was well tolerated. The patient returned to the cota. Sheath was removed. TR band was placed. FINDINGS: Left ventriculography in 30-degree JAY view. Normal wall motion. Normal systolic function. CORONARY ANATOMY: LEFT MAIN: Left main is free of disease. LAD: Free of disease in the diagonal system. CIRCUMFLEX: Free of disease in the marginal system. RIGHT CORONARY ARTERY: Dominant artery, gives rise to PDA, free of disease. IMPRESSION: Normal left ventricular systolic function. Normal coronary anatomy. TRANSINT:[id number] Voice Confirmation ID: [id number] DOCUMENT ID: [id number] CARLOS CERDA MD at 1240 CC: [id number] DICTATION DATE: 05/24/19 153 PHYSICAL MEDICINE SPECIALIST: 05/24/19 [id number] DIS IN 05/24/19 [facility] [address] [place] [address]
== END 2019-05-24 18:56 | disposition home or self-care (01) ==
LOC: D.ER 17:14 → OBSVTIME 21:27 → D.M2 21:27
PROVIDERS: Family Medicine; ADMIT Internal Medicine Nephrology; ATTEND Internal Medicine Nephrology
DX: I20.0 Unstable angina (principal); I10 Essential (primary) hypertension; E78.5 Hyperlipidemia, unspecified; K21.9 Gastro-esophageal reflux disease without esophagitis; F41.9 Anxiety disorder, unspecified